=== PATIENT | female | born 1940 | race Caucasian/White ===

== ENCOUNTER 2019-08-17 06:12 | Inpatient (IN) ==
--- NOTE | 2019-08-12 08:40 | Anesthesiology Consultation ---
Date of Service August 12, 2019 Assessment & Plan (1) Encounter for pre-operative examination: Patient seen in PAT 04/08/19, and cleared for surgery, but case r/s due to covid19 pandemic. PCP Clearance 05/11/19 = "Seen in the office 05/11/19 and is medically cleared for surgery." COVID Status: As of 08/06 nurse assessment, patient denies travel to endemic area, known exposure/sick contacts, or symptoms of COVID19. Preoperative COVID19 testing to be completed on 08/[address] [facility]. Chart Review Chart Review: Acceptable Risk for Surgery and Patient NOT seen in Pre Admission Testing History Surgery Operation Date: 08/17/19 09:20 Proposed Procedures p Left Total Knee Arthroplasty - Cesar Churchill Height/Weight Height: 4 ft 11.75 in Weight: 60.328 kg Allergies Allergy/AdvReac Type Severity Reaction Status Date / Time No Known Allergies Allergy Verified 08/07/19 14:17 Medications Home Medications Medication Instructions Recorded Confirmed Last Taken amlodipine 10 mg PO QPM 03/30/19 08/07/19 Unknown aspirin 325 mg PO DAILY PRN 03/30/19 08/07/19 Unknown losartan 100 mg PO QAM 03/30/19 08/07/19 Unknown pravastatin 40 mg PO QPM 03/30/19 08/07/19 Unknown Past Medical History Medical History GERD (gastroesophageal reflux disease) HX Hyperlipidemia Hypertension Osteoarthritis Past Family History Family History Father Family history of diabetes mellitus Sister Family history of diabetes mellitus Past Surgical History Surgical History History of cataract surgery BOTH EYES History of esophagogastroduodenoscopy (EGD) Hx of colonoscopy Hx of total hysterectomy Nausea and vomiting after administration of anesthetic agent Social History Smoking Status: Never smoker Do You Dip or Chew Tobacco: No Hx Alcohol Use: Yes Alcohol type: wine alcohol intake frequency: holidays/special occasions only Hx Substance Use: No Testing Laboratory Results 08/11/19 WBC: 6.2 H/H: 10.1/34.5 PLATELETS: 325 SODIUM: 144 POTASSIUM: 4.6 CHLORIDE: 106 CO2: 25 BUN: 24 CREATININE: 1.2 GLUCOSE: 108 PT: 11.5 PTT: 26.5 INR: 0.97 UA: WNL Electrocardiogram Date: 04/08/19 Findings: + NSR @ (75bpm) Chest X-Ray Date: 04/08/19 1. Moderate hiatal hernia 2. No active disease in the chest
--- NOTE | 2019-08-16 21:09 | History & Physical Report ---
Date of Service August 16, 2019 Assessment & Plan (1) Degenerative joint disease of left knee: plan is to be admitted undergo left tka, stay the night, home next day. History of Present Illness Chief Complaint: left knee pain Primary Care Provider: Calos Sargent Pt with left knee pain for years. cant do adls. has failed all forms of cons ervative measures. Allergies Allergy/AdvReac Type Severity Reaction Status Date / Time No Known Allergies Allergy Verified 08/07/19 14:17 Home Medications Home Medications Medication Instructions Recorded Confirmed Type amlodipine 10 mg PO QPM 03/30/19 08/07/19 History aspirin 325 mg PO DAILY PRN 03/30/19 08/07/19 History losartan 100 mg PO QAM 03/30/19 08/07/19 History pravastatin 40 mg PO QPM 03/30/19 08/07/19 History Past Med/Surg History Medical History GERD (gastroesophageal reflux disease) HX Hyperlipidemia Hypertension Osteoarthritis Surgical History History of cataract surgery BOTH EYES History of esophagogastroduodenoscopy (EGD) Hx of colonoscopy Hx of total hysterectomy Nausea and vomiting after administration of anesthetic agent Family History Father Family history of diabetes mellitus Sister Family history of diabetes mellitus Social History Preferred Language: Welsh Communication Ability: Effective Gaming Investigator Required: No Beliefs That Will Affect Care: None Current Living Situation: Spouse Feels Safe at Home: Yes Smoking Status: Never smoker Second Hand Exposure: Yes (SPOUSE USED TO SMOKE) ; Hx Alcohol Use: Yes Alcohol type: wine Hx Substance Use: No Review of Systems All systems reviewed & are unremarkable except as noted in HPI & below Physical Exam Constitutional: WD/WN, vitals as above Neck: trachea midline, no thyromegaly Respiratory: normal respiratory effort, lungs clear to auscultation Cardiovascular: RRR, no murmur, no edema Gastrointestinal (Abdomen): normal bowel sounds, soft, nontender, no hepatosplenomegaly Musculoskeletal: Knee: + limited ROM of knee, + knee ROM with crepitation and + varus alignment
[~2019-08-17 06:12] MED LIST: ACETAMINOPHEN 500 MG TAB PO SCH; CEFAZOLIN 1000MG 1,000 MG/7.5 ML SYR IV SCH; CeleBREX 200 MG CAP PO SCH; FAMOTIDINE 20 MG TAB PO SCH; LR 500ML BOLUS, THEN 15ML/HR IV SCH; LR 60ML/HR IV SCH; METOCLOPRAMIDE HCL 10 MG TABLET PO SCH; ROPIVACAINE 0.5% HCL/PF 150 MG, BUPIVACAINE 0.5% MPF 30 ML, EPINEPHrine 30MG/30ML (OR U... INSTIL SCH; TRANEXAMIC ACID 1,000 MG **IV Intra-op IV SCH; TRANEXAMIC ACID 1,000 MG **IV Pre-op IV SCH; dexAMETHasone 4 MG TAB PO SCH
[2019-08-17] MEDS ORDERED: BUPIVACAINE 0.25% 30 ML VIAL ONE (07:27)
[2019-08-17] MEDS ORDERED: BUPIVACAINE 0.5 % 5 MG/1 ML PF 10ML VIAL ONE (07:28)
[2019-08-17] MEDS ORDERED: MIDAZOLAM HCL 1 MG/ML 2ML VIAL ONE (07:42)
[2019-08-17] MEDS ORDERED: fentaNYL citrate 100 MCG/2 ML VIAL ONE (07:42)
--- NOTE | 2019-08-17 08:27 | History & Physical Bridge Note ---
Date of Service August 17, 2019 History & Physical Bridge Note I have examined the patient, reviewed the History & Physical and in the interval since the performance of the History & Physical I have noted the following changes of clinical significance: no changes noted
[2019-08-17] MEDS ORDERED: BACITRACIN INJ 50,000 UNIT VIAL ONE (08:45)
[2019-08-17] MEDS ORDERED: ORTHO JOINT ANESTHETIC ONE (08:45)
[2019-08-17] MEDS ORDERED: PROPOFOL IV EMULSION 10 MG/ML 20 ML VIAL IV ONE (09:38)
[2019-08-17] MEDS ORDERED: LIDOCAINE HCL 2% 2 ML VIAL/AMP(20MG/ML) INFIL ONE (09:38)
--- NOTE | 2019-08-17 10:13 | Post Operative Brief Note ---
Immediate Post Op Note v1 Date of Surgery August 17, 2019 Pre & Post Diagnosis Operation Date: 08/17/19 08:30 Pre-Op Diagnosis: Left Knee Osteoarthritis Post-Op Diagnosis: Left Knee Osteoarthritis I identified the patient and participated in the time-out.: Yes Procedure Operation Date: 08/17/19 08:30 Actual Procedures p Left Total Knee Arthroplasty(Left) - Cesar Churchill Surgeon Cesar Churchill Director Of Payroll lucas goins pac Estimated Blood Loss 10 Findings Consistent with Post-Op Diagnosis Complications none
--- NOTE | 2019-08-17 10:14 | Operative Report ---
Post Operative Report Pre & Post Diagnosis Operation Date: 08/17/19 08:30 Pre-Op Diagnosis: Left Knee Osteoarthritis Post-Op Diagnosis: Left Knee Osteoarthritis I identified the patient and participated in the time-out.: Yes Procedure Operation Date: 08/17/19 08:30 Actual Procedures p Left Total Knee Arthroplasty(Left) - Cesar Churchill Surgeon Cesar Churchill Electric Shipyard Operator anshu goins pac Estimated Blood Loss 10 Findings Consistent with Post-Op Diagnosis Specimens none Complications none Disposition Accompanied Patient To Recovery: No Disposition: Recovery Room Description of Procedure IMPLANTS USED: [employer] journey 2 knee size 4 cemented femoral component, a size 3 tibial component, a size 11 PS insert and a size 32 all polyethylene patella INDICATIONS: Mrs. Fan is a pleasant (male/female) who has unfortunately failed all forms of conservative measures. Therefore, they have decided to undergo elective surgical intervention. All risks and benefits of the surgery were discussed with the patient and the family in entirety. PROCEDURE: The patient was brought to the operating room and properly identified by myself, anesthesia, and staff. Patient was given a spinal anesthesia and placed on the operating table in the supine position. Tourniquets were applied to the left upper thigh. The leg was then prepped and draped in usual sterile fashion. We made a standard midline approach over the patella and dissected down through the subcutaneous tissue to identify the capsule and performed a medial capsulotomy with the patella everted and the knee flexed.The patient matched implant was then put onto the femur. The femur measured to be a size #4. This was then put into place. We made the appropriate cuts and then placed a retractor behind the proximal tibia to retract anteriorly. We then placed the patient matched knee implant on the tibia. It measured to be a size #3. A size #3 guide was then put in place. We used the tibial punch then put the trial components into place. We had very good range of motion, excellent stability, and excellent patella tracking. We removed the trial components and irrigated the wound. We impacted the components in place using antibiotic cement. All excess cement was removed. We then irrigated the wound once more. We closed the capsule with 0 PDS suture, deep dermis and 2-0 Vicryl, and finally the skin with sarwat. A sterile dressing was applied. The patient was taken to the recovery room in stable condition. Due to the complex nature of the procedure, the entire surgery was performed with the operational assistance of Anshu Irvin PA-C. The anesthesiologist assistant certified was under direct supervision, was involved in the actual performance of all aspects of the surgical procedure including hemostasis, tissue retraction and incision, instrument management, patient positioning, and wound closure. I attest to the content of the Intraoperative Record and any orders documented therein. Any exceptions are noted below.
[2019-08-17] MEDS ORDERED: ATROPINE SULFATE 0.1 MG/ML 10ML SYR IV PRN (11:19)
[2019-08-17] MEDS ORDERED: ePHEDrine sulfate 50 MG/ML AMP IV PRN (11:19)
--- NOTE | 2019-08-17 11:20 | Anesthesiology Progress Note ---
Date of Service August 17, 2019 Anesthesia Post Procedure Vital Signs Vital Signs: Temp Pulse Pulse Resp BP BP Pulse Ox 08/17/19 11:10 77 18 110/56 L 100 08/17/19 11:00 76 18 110/53 L 100 08/17/19 10:49 36.8 C 79 18 93/53 L 100 08/17/19 07:57 74 18 103/45 L 97 08/17/19 07:17 36.6 C 97 H 20 148/71 H 98 Transfer of Care Handoff Completed per policy Notes Mental Status: alert / awake / arousable and participated in evaluation Patient Amnestic to Procedure: Yes Nausea / Vomiting: adequately controlled Pain: adequately controlled Airway Patency, RR, SpO2: stable & adequate BP & HR: stable & adequate Hydration State: stable & adequate Neuraxial Anesthesia: was administered and sensory block is resolving Anesthetic Complications: no major complications apparent and Pt Satisfied with anesthetic care
[2019-08-17] MEDS ORDERED: MAGNESIUM HYDROXIDE SUSP 30 ML UDC PO PRN (12:53)
[2019-08-17] MEDS ORDERED: OXYCODONE HCL IR 5 MG TAB (IMMEDIATE RELEASE) PO PRN (12:53)
[2019-08-17] MEDS ORDERED: bisacodyL 10 MG SUPP PR PRN (12:53)
[2019-08-17] MEDS ORDERED: METOCLOPRAMIDE HCL INJ 5 MG/ML 2 ML VIAL IV PRN (12:53)
[2019-08-17] MEDS ORDERED: ONDANSETRON INJ 2 MG/ML 2 ML VIAL IV PRN (12:53)
[2019-08-17] MEDS ORDERED: NALOXONE HCL 0.4 MG/1 ML VIAL/CARP IV PRN (12:53)
[2019-08-17] MEDS: ACETAMINOPHEN 500 MG TAB PO SCH ×2 (13:50→21:17)
[2019-08-17] MEDS: SODIUM CHLORIDE 0.9% 1000ML 1,000 ML IV SCH (16:54)
[2019-08-17] MEDS: CEFAZOLIN 2000MG 2,000 MG/15 ML SYR IV SCH (16:54)
[2019-08-17] MEDS ORDERED: PRAVASTATIN SOD 40 MG TAB PO SCH (21:00)
[2019-08-17] MEDS ORDERED: AMLODIPINE BESYLATE 5 MG TAB PO SCH (21:00)
[2019-08-17] MEDS ORDERED: SENNA 8.6 MG TAB PO SCH (21:00)
[2019-08-17] MEDS: DOCUSATE SODIUM 100 MG CAP PO SCH (21:17)
[2019-08-18] MEDS: CEFAZOLIN 2000MG 2,000 MG/15 ML SYR IV SCH (01:20)
[2019-08-18] MEDS: SODIUM CHLORIDE 0.9% 1000ML 1,000 ML IV SCH (04:29)
[2019-08-18] MEDS: ACETAMINOPHEN 500 MG TAB PO SCH ×2 (05:37→13:50)
[2019-08-18 06:39] LABS: Hematocrit (blood only) 29.7 % (37-47); Hemoglobin 9.1 g/dL (12.0-16.0); Mean Corpuscular Hemoglobin 23.4 pg (25-34); Mean Corpuscular Hgb Conc 30.6 g/dL (32-36); Mean Corpuscular Volume 76.3 fL (80-100); Mean Platelet Volume 9.4 fL (7.4-10.4); Platelet Count 285 K/uL (130-400); RDW Coefficient of Variation 14.7 % (11.5-14.5); RDW Standard Deviation 41.6 fL (36.4-46.3); Red Blood Count 3.89 M/uL (4.2-5.4); White Blood Count 12.21 K/uL (4.8-10.8)
[2019-08-18 07:11] LABS: BUN Creatinine Ratio 18.7 (10-20); Calcium 8.1 mg/dl (8.5-10.1); Creatinine Clr Calc Pharmacy 30.8 ml/min; Est GFR (African American) 50.3; Est GFR (Non-African American) 43.4; Potassium 3.9 mmol/L (3.5-5.1)
[2019-08-18] MEDS ORDERED: dexAMETHasone 10 MG in SYRINGE 0 ML IV SCH (08:00)
--- NOTE | 2019-08-18 08:21 | Anesthesiology Progress Note ---
Date of Service August 18, 2019 Anesthesia Post Procedure Vital Signs Vital Signs: Temp Pulse Pulse Pulse Resp BP Pulse Ox 08/18/19 07:21 36.5 C 80 16 114/69 98 08/18/19 04:12 36.8 C 81 16 112/68 96 08/17/19 23:05 36.6 C 80 16 107/64 96 08/17/19 21:13 87 125/69 08/17/19 19:41 36.7 C 85 16 119/67 94 08/17/19 15:16 36.4 C L 77 16 122/67 93 08/17/19 14:00 78 16 120/71 96 08/17/19 13:00 72 16 117/66 97 08/17/19 12:00 36.4 C L 76 16 113/65 97 08/17/19 11:47 75 12 115/58 L 99 08/17/19 11:40 74 12 106/56 L 95 08/17/19 11:30 75 12 116/57 L 97 08/17/19 11:20 36.4 C L 73 18 110/59 L 100 08/17/19 11:10 77 18 110/56 L 100 08/17/19 11:00 76 18 110/53 L 100 08/17/19 10:49 36.8 C 79 18 93/53 L 100 Notes Mental Status: alert / awake / arousable and participated in evaluation Patient Amnestic to Procedure: Yes Nausea / Vomiting: adequately controlled Pain: adequately controlled Airway Patency, RR, SpO2: stable & adequate BP & HR: stable & adequate Hydration State: stable & adequate Neuraxial Anesthesia: was administered and sensory block resolved Anesthetic Complications: no major complications apparent and Pt Satisfied with anesthetic care
--- NOTE | 2019-08-18 08:22 | Orthopedic Progress Note ---
Date of Service August 18, 2019 Assessment & Plan (1) Degenerative joint disease of left knee: Postop day 1 status post left total knee arthroplasty Acute blood loss anemia-vital signs are stable and she is asymptomatic at this time. PT/OT protocols. Weightbearing as tolerated. DVT prophylaxis with p.o. aspirin twice daily and SCDs. Continue current pain regimen as written. DC planning-patient is planning for home health services upon discharge. Admission and Anticipated Discharge Date Admission Date: August 17, 2019 Subjective Postop day 1 Patient is sitting in her chair at the bedside. Talking on the phone. No complaints this morning. Denies shortness of breath, chest pain, lightheadedness. She states currently that her pain is controlled. She states that she has no calf pain this morning but she had some shooting pain down her calf when she was ambulating to the bathroom last night. This has not returned. She is hoping to go home today. Physical Exam Physical Exam: Dressings are clean, dry, and intact. Calves are soft nontender. Neurovascular is intact. Toes are mobile. She has good dorsiflexion and plantar flexion on the operative side. Results & Data ([facility]) Vital Signs (Past 12 Hours) Vital Signs Temp Pulse Pulse Resp BP Pulse Ox 08/18/19 07:21 36.5 C 80 16 114/69 98 08/18/19 04:12 36.8 C 81 16 112/68 96 08/17/19 23:05 36.6 C 80 16 107/64 96 08/17/19 21:13 87 125/69 Laboratory Results Laboratory Results WBC 12.21 K/uL (4.8-10.8) H 08/18/19 05:54 RBC 3.89 M/uL (4.2-5.4) L 08/18/19 05:54 Hgb 9.1 g/dL (12.0-16.0) L 08/18/19 05:54 Hct 29.7 % (37-47) L 08/18/19 05:54 MCV 76.3 fL (80-100) L 08/18/19 05:54 MCH 23.4 pg (25-34) L 08/18/19 05:54 MCHC 30.6 g/dL (32-36) L 08/18/19 05:54 RDW Std Deviation 41.6 fL (36.4-46.3) 08/18/19 05:54 RDW Coeff of Jonatan 14.7 % (11.5-14.5) H 08/18/19 05:54 Plt Count 285 K/uL (130-400) 08/18/19 05:54 MPV 9.4 fL (7.4-10.4) 08/18/19 05:54 Sodium 140 mmol/L (136-145) 08/18/19 05:54 Potassium 3.9 mmol/L (3.5-5.1) 08/18/19 05:54 Chloride 112 mmol/L (98-107) H 08/18/19 05:54 Carbon Dioxide 19 mmol/L (21-32) L 08/18/19 05:54 Anion Gap 9.0 (3-11) 08/18/19 05:54 BUN 22 mg/dl (7-18) H 08/18/19 05:54 Creatinine 1.19 mg/dl (0.6-1.2) 08/18/19 05:54 Est Cr Clr Drug Dosing 30.8 ml/min 08/18/19 05:54 Est GFR ( Amer) 50.3 08/18/19 05:54 Est GFR (Non-Af Amer) 43.4 08/18/19 05:54 BUN/Creatinine Ratio 18.7 (10-20) 08/18/19 05:54 Glucose 148 mg/dl (70-99) H 08/18/19 05:54 Calcium 8.1 mg/dl (8.5-10.1) L 08/18/19 05:54 Blood Type A Positive 08/17/19 06:38 Antibody Screen NEGATIVE 08/17/19 06:38
[2019-08-18] MEDS: DOCUSATE SODIUM 100 MG CAP PO SCH (08:55)
[2019-08-18] MEDS ORDERED: MULTIVITAMIN TAB PO SCH (09:00)
[2019-08-18] MEDS ORDERED: LOSARTAN POTASSIUM 50 MG TAB PO SCH (09:00)
[2019-08-18] MEDS ORDERED: ASPIRIN 81 MG ECTAB PO SCH (09:00)
--- NOTE | 2019-08-19 17:04 | Discharge Summary (DS) ---
DISCHARGE DIAGNOSIS: Degenerative joint disease, left knee. SECONDARY DIAGNOSES: Gastroesophageal reflux disease, hyperlipidemia, hypertension, osteoarthritis. CONSULTS: None. COMPLICATIONS: None. PROCEDURES: Left total knee arthroplasty performed by Dr. Churchill on 08/18/2019. BRIEF HISTORY: As dictated in the history and physical. HOSPITAL SUMMARY: The patient was admitted on the above-noted date and had the above-noted surgery performed, which she tolerated well. On the first postoperative day, she was sitting in her chair at the bedside, talking on her phone. She had no complaints. Denied shortness of breath, chest pain or lightheadedness. Her pain was controlled. She had no calf pain that morning but stated she had some shooting pains down her calf when ambulating the previous evening. This had not returned. She was hoping to go home. Dressings were clean, dry and intact. Calves were soft, nontender, neurovascularly intact. Toes were mobile and she had good dorsiflexion and plantarflexion on the operative side. Vital signs were stable. She was afebrile. Hemoglobin was 9.1 and she was started on PT and OT protocols and continued on DVT prophylaxis and pain management. Her previous hemoglobin was approximately 3 grams higher preoperatively and she was otherwise remaining asymptomatic. Vital signs were stable. She progressed with her PT and OT protocols, was ambulating well and had gone up and down steps. Denied any symptoms such as chest pain or lightheadedness. No shortness of breath and it was felt that she could be discharged to home. For further review, please see chart. LABORATORY AND X-RAY DATA: As per chart. DISCHARGE INSTRUCTIONS: The patient was discharged home in satisfactory condition on 08/18/2019. DIET: Regular. ACTIVITY: Weightbearing as tolerated on the left lower extremity with walker. Follow TKA instruction sheets and special care instructions as noted per Dr. Churchill and follow up with Dr. Churchill in 2 weeks. The patient to have an H and H drawn in 2 days by home health services. DISCHARGE MEDICATIONS: Acetaminophen 1000 mg p.o. q.8 hours, aspirin 81 mg p.o. b.i.d., oxycodone 5 mg p.o. 1 tablet p.o. q.4 hours p.r.n. Resume home meds as listed. Stop taking previous aspirin dosage.
== END 2019-08-18 15:10 | disposition home health service (06) | DRG 470 ==
LOC: ASU 06:12 → 3E 12:46

== ENCOUNTER 2022-06-04 06:21 | Observation (INO) ==
--- NOTE | 2022-05-11 13:32 | PAT Medication Instructions ---
Medication Instructions Date of Service May 11, 2022 Home Medications amlodipine 10 mg tablet 10 mg PO QPM losartan 100 mg tablet 100 mg PO QAM apixaban 5 mg tablet (Eliquis) 5 mg PO BID ASK your prescriber and surgeon apixaban 5 mg tablet (Eliquis) 5 mg PO BID DO NOT take the morning of surgery losartan 100 mg tablet 100 mg PO QAM Take evening before surgery amlodipine 10 mg tablet 10 mg PO QPM OTHERWISE NOTHING TO EAT OR DRINK AFTER MIDNIGHT Other Notes If you have any questions please call us at [phone] or [phone] or [phone] or [phone]
--- NOTE | 2022-05-15 10:24 | Anesthesiology Consultation ---
Date of Service May 15, 2022 Assessment & Plan (1) Encounter for pre-operative examination: - COVID screening: Per assessment on 05/15: No known COVID-19 positive contacts or current COVID-19 related symptoms. Travel screen negative. Patient vaccinated. At surgeon discretion if preop Covid testing being done. - Outpatient joint pathway: Per OR booking comments, plan for outpatient joint program. Patient seen at [facility] 05/15. Patient motived. Her son/sisters will be strong home support. Case reviewed with Dr. Callahan. Patient is an acceptable candidate to proceed as outpatient joint pathway for TSA pending perioperative course. Surgeon's office arranging post-op home management. - Eliquis instructions: per surgeon/prescriber (per patient, she was given enoxaparin bridging instructions while Eliquis on hold) Chart Review Chart Review: Acceptable Risk for Surgery and Patient seen in Pre Admission Testing Teaching & Discussion Pre-Anesthesia Teaching/Discussion Notes: Instructed NPO after midnight before surgery,except medications with 15 cc of water. Medication instructions provided according to the [facility] guidelines. History Surgery Operation Date: 06/04/22 13:10 Proposed Procedures p Left Total Shoulder Arthroplasty Reverse - Stephen Dong MD Height/Weight Height: 5 ft Weight: 57 kg Allergies Allergy/AdvReac Type Severity Reaction Status Date / Time acetaminophen [From Vicodin] Allergy Gastrointestinal Verified 05/11/22 12:18 Upset hydrocodone [From Vicodin] Allergy Gastrointestinal Verified 05/11/22 12:18 Upset Medications Home Medications Medication Instructions Recorded Confirmed Last Taken amlodipine 10 mg tablet 10 mg PO QPM 03/30/19 05/11/22 08/16/19 17:00 losartan 100 mg tablet 100 mg PO QAM 03/30/19 05/11/22 08/16/19 06:00 apixaban 5 mg tablet (Eliquis) 5 mg PO BID 05/11/22 05/11/22 Unknown Past Medical History Medical History Deep vein thrombosis LLE (2019) post-op left TKA GERD (gastroesophageal reflux disease) Hx Hyperlipidemia Hx Hypertension Osteoarthritis Pulmonary embolism Approximately 11/2021, currently on Eliquis Exercise / Class Metabolic Activity II 4-5 Yardwork/Stairs/Walk up hill (one FS (No CP, no SOB)) Past Family History Family History Father Family history of diabetes mellitus Sister Family history of diabetes mellitus Past Surgical History Surgical History History of cataract surgery B/L History of esophagogastroduodenoscopy (EGD) History of total left knee replacement (TKR) Left TKA (08/17/19): SAB at L4-5 (x1 attempt) + PNB at [facility]. No issues noted per post-op anesthesia progress note. Hx of colonoscopy Hx of total hysterectomy Nausea and vomiting after administration of anesthetic agent Past Anesthesia History No Hx of Anesthesia Complications and No Family Hx of Anesthesia Complications History of PONV History of PONV (Noted per records, patient unsure) and Hx of Motion Sickness (Remote hx) Social History Smoking Status: Never smoker Do You Dip or Chew Tobacco: No Hx Alcohol Use: No Hx Substance Use: No substance use type: does not use Review of Systems Patient denies chest pain, shortness of breath, dyspnea on exertion, fever, chills, cough, wheezing, palpitations. Physical Exam Vital Signs VITALS BP 133/73 P 74 TEMP 97.9 SP02 98%RA RESP 16 PHYSICAL Full cervical extension range of motion. Full TMJ range of motion. TMD 2.5 finger breaths Mallampati Score 1 Dentition: + partials upper/lower Lungs: clear throughout to auscultation Cardiac: regular rate and rhythm, no murmurs noted Spine: normal Carotid arteries: negative bruit Extremities: no edema Lab Results Anesthesia Preop Results Results Anesthesia Widget: WBC 5.00 K/ul (4.8-10.8) 05/15/22 Hgb 12.2 g/dl (12.0-16.0) 05/15/22 Hct 37.9 % (37.0-47.0) 05/15/22 Plt 242 K/uL (130-400) 05/15/22 Na 137 mmol/L (136-145) 05/15/22 K 4.3 mmol/L (3.5-5.1) 05/15/22 Cl 106 mmol/L (98-107) 05/15/22 CO2 22 mmol/L (21-32) 05/15/22 BUN 29 mg/dl (6-23) H 05/15/22 Creat 1.01 mg/dl (0.6-1.2) 05/15/22 Glucose Level 91 mg/dl (70-99(Fasting)) 05/15/22 PT 10.9 Seconds (9.0-12.0) 05/15/22 PTT 32.5 Seconds (21.0-31.0) H 05/15/22 INR 1.0 (0.9-1.1) 05/15/22 HA1c 6.0 % (4.5-5.6) H 05/15/22 Blood Type A Positive 05/15/22 Antibody Screen NEGATIVE 05/15/22 Testing Electrocardiogram Date: 05/15/22 Findings: + NSR @ (72) Chest X-Ray Date: 05/15/22 FINDINGS: Cardiac mediastinal and hilar silhouettes are unchanged. Moderate sized hiatal hernia. No pneumothorax, pleural effusion, airspace consolidation or pulmonary edema. Chronic compression deformity of the thoracolumbar junction. Degenerative changes of the shoulders and spine. IMPRESSION: No acute process of the chest. Moderate sized hiatal hernia. COVID-19 Risk Screen Screening Information COVID-19 Screen Date: 05/15/22 Exposure 21 Days Family/Household +COVID Last 21 Days: No Exposure 10 Days Any COVID Exposure Last 10 Days: No Symptoms Last 10 Days Experienced COVID Sx Last 10 Days: No + COVID 0-90 Days COVID + in Last 0-90 Days: No
[~2022-06-04 06:21] MED LIST changes: -CEFAZOLIN 1000MG 1,000 MG/7.5 ML SYR IV SCH; +GABAPENTIN 300 MG CAP PO SCH; +LR 15ML/HR IV SCH; -LR 500ML BOLUS, THEN 15ML/HR IV SCH; -LR 60ML/HR IV SCH; -ROPIVACAINE 0.5% HCL/PF 150 MG, BUPIVACAINE 0.5% MPF 30 ML, EPINEPHrine 30MG/30ML (OR U... INSTIL SCH; +ROPIVACAINE 0.5% HCL/PF 150 MG, BUPIVACAINE 0.75% MPF 20 ML, EPINEPHrine 30MG/30ML (OR ... INSTIL SCH; +ceFAZolin 2000MG 2,000 MG/15 ML SYR IV SCH
[2022-06-04] MEDS ORDERED: BUPIVACAINE 0.5 % 5 MG/1 ML PF 10ML VIAL ONE (06:28)
[2022-06-04] MEDS ORDERED: ONDANSETRON INJ 2 MG/ML 2 ML VIAL IV PRN ×2 (08:26→11:26)
[2022-06-04] MEDS ORDERED: fentaNYL citrate PF 100 MCG/2 ML VIAL IV PRN (08:26)
[2022-06-04] MEDS ORDERED: ePHEDrine sulfate 50 MG/ML AMP IV PRN (08:26)
[2022-06-04] MEDS ORDERED: ATROPINE SULFATE 0.1 MG/ML 10ML SYR IV PRN (08:26)
[2022-06-04] MEDS ORDERED: MIDAZOLAM HCL 1 MG/ML 2ML VIAL ONE (08:32)
[2022-06-04] MEDS ORDERED: fentaNYL citrate PF 100 MCG/2 ML VIAL ONE (08:32)
--- NOTE | 2022-06-04 08:57 | History & Physical Report ---
Date of Service June 04, 2022 Assessment & Plan (1) Rotator cuff tear arthropathy of left shoulder: Plan: I have recommended proceeding with left reverse total shoulder replacement. I explained the risk benefits and alternatives to her and she has consented to pr oceed. We will resume her Eliquis postoperatively. Plan 23-hour observation. History of Present Illness Chief Complaint: Left shoulder pain Primary Care Provider: GLORY Hensley And is an 81-year-old woman with left shoulder rotator cuff tear arthropathy. After the failure of conservative treatment I recommended proceeding with a left reverse total shoulder replacement Allergies Allergy/AdvReac Type Severity Reaction Status Date / Time hydrocodone [From Vicodin] Allergy Gastrointestinal Verified 06/04/22 07:04 Upset Home Medications Medication Instructions Recorded Confirmed Type amlodipine 10 mg tablet 10 mg PO QPM 03/30/19 06/04/22 History losartan 100 mg tablet 100 mg PO QAM 03/30/19 06/04/22 History apixaban 5 mg tablet (Eliquis) 5 mg PO BID 05/11/22 06/04/22 History enoxaparin 60 mg/0.6 mL 60 mg subcut Q12H 06/04/22 06/04/22 History subcutaneous syringe (Lovenox) Past Med/Surg History Medical History Deep vein thrombosis LLE (2019) post-op left TKA GERD (gastroesophageal reflux disease) Hx Hyperlipidemia Hx Hypertension Osteoarthritis Pulmonary embolism Approximately 11/2021, currently on Eliquis Surgical History History of cataract surgery B/L History of esophagogastroduodenoscopy (EGD) History of total left knee replacement (TKR) Left TKA (08/17/19): SAB at L4-5 (x1 attempt) + PNB at [facility]. No issues noted per post-op anesthesia progress note. Hx of colonoscopy Hx of total hysterectomy Nausea and vomiting after administration of anesthetic agent Family History Father Family history of diabetes mellitus Sister Family history of diabetes mellitus Social History Smoking Status: Never smoker Second Hand Exposure: Yes (hx-over 20 years ago); Do You Dip or Chew Tobacco: No; Tobacco Cessation Education Requested by Patient: No Hx Alcohol Use: No Hx Substance Use: No Preferred Language: Welsh Communication Ability: Effective Warp Tying Machine Knotter Required: No Beliefs That Will Affect Care: None marital status: / Current Living Situation: Alone Current Living Situation Comment: son currently staying w/pt. Other Information That Helps Us Care for You: No Feels Safe at Home: Yes Safety Concerns: Feels Safe At This Time Assistive Devices: Denture - Upper and Denture - Lower Assistive Devices Comment: will not wear dentures DOS Physical Exam Constitutional: Well-developed, well-nourished, no acute distress Eyes: PERRL, conjunctivae normal, anicteric sclerae ENMT: external ear and nose normal, oropharynx normal Neck: Supple, no masses Respiratory: Clear to auscultation Cardiovascular: Regular rate and rhythm Gastrointestinal (Abdomen): Soft nontender Musculoskeletal: Left shoulder decreased range of motion, diffuse pain, crepitus with range of motion. Results & Data Results & Data Vital Signs (Past 12 Hours) Vital Signs Temp Pulse Resp BP Pulse Ox O2 Del Method 06/04/22 06:54 36.5 C 86 20 149/78 H 99 Room Air
[2022-06-04] MEDS ORDERED: ePHEDrine sulfate 50 MG/ML SYR ONE (11:09)
[2022-06-04] MEDS ORDERED: PHENYLEPHRINE 100MCG/ML 5ML SYR ONE (11:09)
[2022-06-04] MEDS ORDERED: ONDANSETRON INJ 2 MG/ML 2 ML VIAL ONE (11:09)
[2022-06-04] MEDS ORDERED: PROPOFOL IV EMULSION 10 MG/ML 20 ML VIAL IV ONE (11:09)
--- NOTE | 2022-06-04 11:22 | Post Operative Brief Note ---
Immediate Post Op Note v1 Date of Surgery June 04, 2022 Pre & Post Diagnosis Operation Date: 06/04/22 09:20 Pre-Op Diagnosis: Left Shoulder Osteoarthritis Post-Op Diagnosis: Left Shoulder Osteoarthritis I identified the patient and participated in the time-out.: Yes Procedure Operation Date: 06/04/22 09:20 Actual Procedures p Left Total Shoulder Arthroplasty Reverse(Left) - Stephen Dong MD Surgeon Stephen Dong MD Clinic Business Manager Liz Asif PA-C Estimated Blood Loss 20 Findings Consistent with Post-Op Diagnosis Severe degenerative changes left shoulder Complications No complications
--- NOTE | 2022-06-04 11:25 | Operative Report ---
Post Operative Report Pre & Post Diagnosis Operation Date: 06/04/22 09:20 Pre-Op Diagnosis: Left Shoulder Osteoarthritis Post-Op Diagnosis: Left Shoulder Osteoarthritis I identified the patient and participated in the time-out.: Yes Procedure Operation Date: 06/04/22 09:20 Actual Procedures p Left Total Shoulder Arthroplasty Reverse(Left) - Stephen Dong MD Surgeon Stephen Dong MD Engineer/Conductor Liz Asif PA-C Estimated Blood Loss 20 Findings Consistent with Post-Op Diagnosis Severe degenerative changes left shoulder. Specimens Proximal humerus bone and cartilage Drains No drains Anesthesia Type General Regional Indications Karie is a an 81-year-old woman with left shoulder rotator cuff tear arthropathy. After the failure of conservative treatment I recommended proceeding with a left reverse total shoulder replacement. I explained the risk benefits and alternatives to her and she consented to proceed. Description of Procedure Implants: Arthrex reverse total shoulder replacement. Standard size 7 stem. 33 neutral cup. 33 mm x +3 mm polyethylene. 24 x +4 mm baseplate. 25 central screw 2 peripheral locking screws. 33 x +4 glenosphere. Procedure: The patient was taken to the operating room. After verifying their identity and the surgical site they were placed in the beachchair position. All extremities were well-padded. The operative shoulder was sterilely prepped and draped in the usual fashion. A 4 inch incision was made anteriorly just lateral to the coracoid process and carried towards the axillary folds. The deltopectoral interval was identified and the cephalic vein and deltoid muscle were retracted laterally. A deep self-retaining retractor was placed. The capsule was exposed. The subscapularis was elevated off of the proximal humerus and tagged for later repair. The humeral head was exposed and recut at the anatomic neck. The humerus was reamed sequentially until appropriate cortical contact was identified. The trial component was placed in 30 degrees of retroversion. Retractors were placed to expose the glenoid. The remaining labral tissue including the biceps anchor was removed. The central pin was placed and the glenoid was reamed. The baseplate was impacted into place with 1 central and 2 peripheral locking screws. The glenosphere was impacted into place into the correct orientation and securely tested with a large clamp. Polyethylene components were trialed until an appropriately sized trial was identified that had full range of motion, good stability, good deltoid tension, and no signs of impingement. The trial humerus components were removed and the final components assembled and impacted into place. 30 degrees of retroversion was utilized. After reduction once again there was good range of motion, good stability, appropriate deltoid tension, and no signs of impingement. The joint was thoroughly irrigated. The subscapularis was repaired to the proximal humerus. The rotator interval was closed distally if there was any supraspinatus tendon left. The remaining incision was closed with 0 Vicryl 2-0 Vicryl and sarwat. A sterile Silverlon dressing was applied. The patient was placed in a shoulder immobilizer. The patient tolerated the procedure well and there were no intraoperative complications. Liz Asif PA-C assisted in all aspects of the procedure including patient positioning, prepping and draping, manipulation of surgical instruments and retractors, wound closure, dressing placement, and compression wrap placement. I attest to the content of the Intraoperative Record and any orders documented therein. Any exceptions are noted below.
[2022-06-04] MEDS ORDERED: bisacodyL 10 MG SUPP PR PRN (11:26)
[2022-06-04] MEDS ORDERED: oxyCODONE HCL IR 5 MG TAB (IMMEDIATE RELEASE) PO PRN (11:26)
[2022-06-04] MEDS ORDERED: NALOXONE HCL 0.4 MG/1 ML VIAL/CARP IV PRN (11:26)
[2022-06-04] MEDS ORDERED: MAGNESIUM HYDROXIDE SUSP 30 ML UDC PO PRN (11:26)
--- NOTE | 2022-06-04 12:14 | Anesthesiology Progress Note ---
Date of Service June 04, 2022 Anesthesia Post Procedure Vital Signs Vital Signs: Temp Pulse Resp BP Pulse Ox O2 Del Method O2 Flow Rate 06/04/22 12:00 81 16 124/65 99 Oxymask 5 06/04/22 11:50 82 16 125/68 99 Oxymask 5 06/04/22 11:42 96.8 F L 83 16 132/68 99 Oxymask 5 06/04/22 06:54 97.7 F 86 20 149/78 H 99 Room Air Transfer of Care Handoff Completed per policy Notes Mental Status: alert / awake / arousable and participated in evaluation Patient Amnestic to Procedure: Yes Nausea / Vomiting: adequately controlled Pain: adequately controlled Airway Patency, RR, SpO2: stable & adequate BP & HR: stable & adequate Hydration State: stable & adequate Anesthetic Complications: no major complications apparent and Pt Satisfied with anesthetic care
[2022-06-04] MEDS: SODIUM CHLORIDE 0.9% 1000ML 1,000 ML IV SCH ×2 (14:56→20:04)
--- NOTE | 2022-06-04 15:25 | Hospitalist Consultation ---
Date of Consultation June 04, 2022 Assessment & Plan (1) Rotator cuff tear arthropathy of left shoulder: Left shoulder arthroplasty S/p left reverse total shoulder Doing well postop with no acute concerns, neurovascularly intact Pain adequately controlled at time of bedside visit Continue apixaban 5 mg p.o. twice daily History of PE and DVT History of PE with large clot burden in RLL 11/2021, also had a prior DVT 2019 after knee replacement Is high VTE risk. Recommend resuming apixaban 5 mg p.o. twice daily 12-24 hours postop. Will resume 06/05/22 AM. No shortness of breath, leg swelling, or leg pain at time of provider assessment. Recommend indefinite treatment with Eliquis Patient is with a weight of 56 and age of 81, meets 2/3 criteria for dose reduction of Eliquis. As she is postop and had a PE 11/2021 would complete the full 6 months of treatment at 5 mg twice daily through May and then dose reduce Eliquis to 2.5 mg twice daily as outpatient GERD Patient reports a history of GERD symptoms, was previously prescribed PPI but did not take this at the time As an outpatient last month was worked up for possible GI bleeding, had an additional erroneous iron study which showed iron deficiency. This was thought to be a lab error and follow-up repeat showed normal iron levels, normal hemoglobin for age, and low normal MCV. While not anemic or with melena, as she has had some intermittent GERD symptoms, is anticoagulated, and at increased risk postop so reasonable to treat with a PPI for stress prophylaxis for 4 weeks, then can use H2 as needed. Patient was scheduled for screening colonoscopies as an outpatient, had prev iously had these around every 10 years which were normal. Per patient she did not complete her last 1 due to inability to tolerate laying on her side and has decided to defer further colonoscopies due to risk/benefit and age discussion with her PCP. Hypertension Continue losartan 100 mg daily tomorrow Continue amlodipine 10 mg p.o. every afternoon Prediabetes mellitus Not on antiglycemic's at home. Last A1C 6%. Fasting BSG 151. Added conservative weight based SSI. Do not anticipate home antiglycemic's, can follow-up with outpatient for additional follow-up and A1c repeat BSG AC/at bedtime, goal BSG [id number] DVT prophylaxis: On Eliquis CODE STATUS: Full code Disposition: Medical/surgical (2) GERD (gastroesophageal reflux disease): (3) Hyperlipidemia: (4) Deep vein thrombosis: (5) Pulmonary embolism: History of Present Illness Attending Physician: Stephen Dong MD History of Present Illness Karie Fan is a n 81yo F with a PMHx of GERD, microcytic anemia, past DVT with PE, bilateral adhesive capsulitis, and HLD who presented for scheduled left reverse total shoulder replacement 2/2 rotator cuff arthropathy failing conservative treatment. We are consulted for medical management of comorbidities. Preoperative clearance reviewed. She has a history of multiple bilateral pulmonary emboli with large clot burden of the right lower lobe 11/2021 and is on Eliquis 5 mg p.o. twice daily indefinitely as an outpatient. She also had a left lower extremity DVT postoperatively in 2019 after knee replacement. Due to her multiple VTE she was recommended for a Lovenox bridge for 5 days up until surgery, and aggressive reinitiation of anticoagulation postoperatively. Preop labs reviewed. Hemoglobin 13.1, normocytic. Patient had been r referred for suspected iron deficiency, had an erroneous lab draw with subsequent studies within normal limits. On reevaluation patient was not found to be neither anemic, microcytic, or iron deficient. 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 Inpatient evaluation of this is not recommended, and no acute care management of this is required at this time Preoperative medications: Amlodipine 10 mg, Eliquis twice daily which was stopped with a 5-day Lovenox 60 mg twice daily bridge to surgery, losartan 100 mg daily, and Protonix 40 mg daily Intolerant of atorvastatin and Vicodin. Social history: No tobacco use, no alcohol use, no recreational drug use Noncontributory family history No history of DM Preoperative creatinine 1.01, no history of CKD/renal disease Last A1c 6.0, pre-DM without antiglycemic's Preoperative EKG: Normal sinus rhythm. QTc 435. No ST segment changes or T wave inversions appreciated. And is seen at the bedside postop. She reports she feels very well and has no pain whatsoever. She also has no chest pain, chest pressure, shortness of breath, difficulty breathing, nausea, or stomach upset. She reports that she did have some numbness and tingling in all 5 of her left fingers, this is gradually improving with time. She reports she has a past history of DVT and PE, she had a significant burden of clot with her PE and has been on Eliquis since. She reports she does not think that she has problems with bleeding, but was told as an outpatient that she was anemic with low iron and then had repeat studies which showed that her hemoglobin was within the normal range and her MCV was low normal and did not have iron deficiency on repeat studies. Initial iron studies were thought to be due to lab error. She denies any history of black bowel movements, although notes they had been dark while she was on iron for suspected iron deficiency. She denies any history of epigastric pain, although notes there was prior concern for a possible stomach ulcer due to NSAID use and had been on Protonix in the past. She reports that she had not taken this as directed as it was unclear to her if she actually needed it or not. Rare GERD symptoms in the past, none recently. No tobacco use. Does not take any antiglycemic's. Prefers to be on minimal medications were possible. Is looking for an alternative to Silver sneakers to stay active as an outpatient, has recently found a gym which she thinks will work. Patient reports she had had trouble finding an alternative previously, but is confident she has found a suitable alternative and declines case management assistance in facilitating no other questions or concerns at time of provider visit Medical History: Reviewed Medications: Reviewed Surgical History: Reviewed Family history: Reviewed Allergies: Reviewed Social History: Reviewed Code Status: Full Code Allergies Allergy/AdvReac Type Severity Reaction Status Date / Time hydrocodone [From Vicodin] Allergy Gastrointestinal Verified 06/04/22 07:04 Upset Home Medications Medication Instructions Recorded Confirmed Type amlodipine 10 mg tablet 10 mg PO QPM 03/30/19 06/04/22 History losartan 100 mg tablet 100 mg PO QAM 03/30/19 06/04/22 History apixaban 5 mg tablet (Eliquis) 5 mg PO BID 05/11/22 06/04/22 History enoxaparin 60 mg/0.6 mL 60 mg subcut Q12H 06/04/22 06/04/22 History subcutaneous syringe (Lovenox) Patient History Medical History (Updated 06/04/22 @ 16:52 by Cristóbal Yun MD) Deep vein thrombosis LLE (2019) post-op left TKA GERD (gastroesophageal reflux disease) Hx Hyperlipidemia Hx Hypertension Osteoarthritis Pulmonary embolism Approximately 11/2021, currently on Eliquis Surgical History History of cataract surgery B/L History of esophagogastroduodenoscopy (EGD) History of total left knee replacement (TKR) Left TKA (08/17/19): SAB at L4-5 (x1 attempt) + PNB at [facility]. No issues noted per post-op anesthesia progress note. Hx of colonoscopy Hx of total hysterectomy Nausea and vomiting after administration of anesthetic agent Family History Father Family history of diabetes mellitus Sister Family history of diabetes mellitus Social History Smoking Status: Never smoker Second Hand Exposure: Yes (hx-over 20 years ago); Do You Dip or Chew Tobacco: No; Tobacco Cessation Education Requested by Patient: No Hx Alcohol Use: No Hx Substance Use: No Preferred Language: Wolof Communication Ability: Effective Staff Pharmacist Required: No Beliefs That Will Affect Care: None marital status: / Current Living Situation: Alone Current Living Situation Comment: son currently staying w/pt. Other Information That Helps Us Care for You: No Feels Safe at Home: Yes Safety Concerns: Feels Safe At This Time Assistive Devices: None Assistive Devices Comment: will not wear dentures DOS Review of Systems Review of Systems: All systems reviewed & are unremarkable except as noted in HPI & below Physical Exam Physical Exam: General: A&Ox3. NAD. Cooperative. HEENT: Atraumatic, normocephalic. Vision/hearing grossly intact, pupils equal and reactive to light Pulm: CTAB A&P. -wheezes, -rales, -rhonchi. Symmetrical chest rise. No increased work of breathing. No respiratory distress. Cardiac: RRR, -mrg. Radial pulses intact and symmetrical. Abdominal: Nontender, nondistended, soft. BS present. Extremities: Left arm in sling, surgical dressing intact C/D/I. No swelling/hematoma present. Radial pulse intact bilaterally. 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 Sensation intact to soft touch in all 5 fingers bilaterally, slightly qualitatively diminished in left hand but improving with time per patient Results & Data Results & Data Vital Signs (Past 12 Hours) Vital Signs Temp Pulse Resp BP Pulse Ox O2 Del Method O2 Flow Rate 06/04/22 14:43 36.2 C L 76 20 113/66 95 Room Air 06/04/22 12:45 Room Air 06/04/22 13:26 36.2 C L 75 20 106/62 96 Room Air 06/04/22 13:01 36.2 C L 76 18 110/65 95 Room Air 06/04/22 12:57 36.2 C L 74 20 112/66 94 Room Air 06/04/22 12:30 36.2 C L 77 18 118/65 95 Room Air 06/04/22 12:20 36.2 C L 76 16 109/69 95 Room Air 06/04/22 12:10 36.2 C L 78 16 122/61 95 Room Air 06/04/22 12:00 81 16 124/65 99 Oxymask 5 06/04/22 11:50 82 16 125/68 99 Oxymask 5 06/04/22 11:42 36.0 C L 83 16 132/68 99 Oxymask 5 06/04/22 06:54 36.5 C 86 20 149/78 H 99 Room Air PG Care Time/CCT Total # of Minutes Spent Total Time Spent with Patient: Total time spent is greater than 50% in coordination of care (as documented) at patient's floor/unit and/or counseling patient: Coding Level of Care Code 73796 IN/OBS CONSULT LVL 4,60M Diagnoses Rotator cuff tear arthropathy of left shoulder M75.102; M12.812 GERD (gastroesophageal reflux disease) K21.9 Hyperlipidemia E78.5 Deep vein thrombosis I82.409 Pulmonary embolism I26.99
[2022-06-04] MEDS: ACETAMINOPHEN 500 MG TAB PO SCH ×2 (16:13→22:01)
[2022-06-04] MEDS: ceFAZolin 2000MG 2,000 MG/15 ML SYR IV SCH (16:13)
[2022-06-04] MEDS ORDERED: GLUCAGON FOR INJ 1 MG VIAL SQ PRN (17:21)
[2022-06-04] MEDS ORDERED: CARBOHYDRATES FOR HYPOGLYCEMIA PO PRN (17:21)
[2022-06-04] MEDS ORDERED: DEXTROSE 50% 50 ML SYRINGE IV PRN (17:21)
[2022-06-04] MEDS ORDERED: GLUCOSE 40% GEL 15 GM TUBE PO PRN (17:21)
[2022-06-04] MEDS ORDERED: GLUCOSE 10 TAB/TUBE PO PRN (17:21)
[2022-06-04] MEDS: PANTOprazole 40 MG TAB PO SCH (17:55)
[2022-06-04] MEDS: DOCUSATE SODIUM 100 MG CAP PO SCH (20:03)
[2022-06-04] MEDS ORDERED: CeleBREX 200 MG CAP PO SCH (21:00)
[2022-06-04] MEDS ORDERED: SENNA 8.6 MG TAB PO SCH (21:00)
[2022-06-04] MEDS ORDERED: amLODIPine BESYLATE 5 MG TAB PO SCH (21:00)
[2022-06-04] MEDS ORDERED: INSULIN ASPART PER UNIT CHARGE SC SCH (21:00)
[2022-06-05] MEDS: ceFAZolin 2000MG 2,000 MG/15 ML SYR IV SCH (01:57)
[2022-06-05] MEDS: ACETAMINOPHEN 500 MG TAB PO SCH (05:56)
[2022-06-05 06:41] LABS: Hematocrit (blood only) 28.4 % (37.0-47.0); Immature Granulocytes # (auto) 0.02 K/uL (0.01-0.20); Immature Granulocytes % (auto) 0.3 %; Lymphocytes # (auto) 0.63 K/uL (1.2-3.4); Mean Corpuscular Hemoglobin 24.7 pg (25.0-34.0); Mean Corpuscular Hgb Conc 31.7 g/dL (32.0-36.0); Mean Platelet Volume 10.5 fL (9.4-12.4); Monocytes # (auto) 0.61 K/uL (0.11-0.59); Monocytes % (auto) 8.7 %; Neutrophils # (auto) 5.77 K/uL (1.40-6.50); Platelet Count 173 K/uL (130-400); RDW Coefficient of Variation 15.4 % (11.5-14.5); RDW Standard Deviation 43.4 fL (36.4-46.3); Red Blood Count 3.64 M/uL (4.20-5.40); White Blood Count 7.03 K/ul (4.8-10.8)
[2022-06-05 07:12] LABS: BUN Creatinine Ratio 19.3 (10-20); Calcium 7.8 mg/dl (8.6-10.3); Est GFR (African American) 70.9 ml/min; Est GFR (Non-African American) 61.2 ml/min; Potassium 4.1 mmol/L (3.5-5.1)
--- NOTE | 2022-06-05 08:05 | Orthopedic Progress Note ---
Date of Service June 05, 2022 Assessment & Plan (1) Rotator cuff tear arthropathy of left shoulder: Plan: Postop day 1 status post left total shoulder arthroplasty. PT/OT protocols. Nonweightbearing left upper extremity. DVT prophylaxis-apixaban 5 mg p.o. twice daily, SCDs. Pain management as written. DC planning-plan for discharge to home today Admission and Anticipated Discharge Date Admission Date: June 04, 2022 Subjective Postop day 1 Patient sitting up in bed awake and alert. No complaints this morning. Pain is controlled. States she has some mild residual numbness in her thumb on the operative side but otherwise feels well. She is hoping to go home today. Physical Exam Physical Exam: Liana is clean, dry, and intact. Sling is in place. She has good range of motion of her fingers and wrist. Residual numbness in the left thumb. Capillary fill is less than 2 seconds Results & Data Vital Signs (Past 12 Hours) Vital Signs Temp Pulse Resp BP Pulse Ox O2 Del Method 06/05/22 07:45 36.8 C 73 16 105/63 96 Room Air 06/05/22 03:50 36.8 C 79 18 115/69 94 Room Air 06/04/22 23:07 36.7 C 83 18 105/68 95 Room Air Laboratory Results Laboratory Results WBC 7.03 K/ul (4.8-10.8) 06/05/22 06:12 RBC 3.64 M/uL (4.20-5.40) L 06/05/22 06:12 Hgb 9.0 g/dl (12.0-16.0) L 06/05/22 06:12 Hct 28.4 % (37.0-47.0) L 06/05/22 06:12 MCV 78.0 fL (80.0-100.0) L 06/05/22 06:12 MCH 24.7 pg (25.0-34.0) L 06/05/22 06:12 MCHC 31.7 g/dL (32.0-36.0) L 06/05/22 06:12 RDW Std Deviation 43.4 fL (36.4-46.3) 06/05/22 06:12 RDW Coeff of Jonatan 15.4 % (11.5-14.5) H 06/05/22 06:12 Plt Count 173 K/uL (130-400) 06/05/22 06:12 MPV 10.5 fL (9.4-12.4) 06/05/22 06:12 Immature Gran % (Auto) 0.3 % 06/05/22 06:12 Neut % (Auto) 82.0 % 06/05/22 06:12 Lymph % (Auto) 9.0 % 06/05/22 06:12 [place] % (Auto) 8.7 % 06/05/22 06:12 Eos % (Auto) 0.0 % 06/05/22 06:12 Baso % (Auto) 0.0 % 06/05/22 06:12 Neut # (Auto) 5.77 K/uL (1.40-6.50) 06/05/22 06:12 Lymph # (Auto) 0.63 K/uL (1.2-3.4) L 06/05/22 06:12 [place] # (Auto) 0.61 K/uL (0.11-0.59) H 06/05/22 06:12 Eos # (Auto) 0.00 K/uL (0-0.50) 06/05/22 06:12 Baso # (Auto) 0.00 K/uL (0-0.2) 06/05/22 06:12 Immature Gran # (Auto) 0.02 K/uL (0.01-0.20) 06/05/22 06:12 Sodium 141 mmol/L (136-145) 06/05/22 06:12 Potassium 4.1 mmol/L (3.5-5.1) 06/05/22 06:12 Chloride 110 mmol/L (98-107) H 06/05/22 06:12 Carbon Dioxide 23 mmol/L (21-32) 06/05/22 06:12 Anion Gap 8 (3-11) 06/05/22 06:12 BUN 17 mg/dl (6-23) 06/05/22 06:12 Creatinine 0.88 mg/dl (0.6-1.2) 06/05/22 06:12 Est Cr Clr Drug Dosing 39.0 ml/min 06/05/22 06:12 Est GFR ( Amer) 70.9 ml/min 06/05/22 06:12 Est GFR (Non-Af Amer) 61.2 ml/min 06/05/22 06:12 BUN/Creatinine Ratio 19.3 (10-20) 06/05/22 06:12 Glucose 116 mg/dl (70-99(Fasting)) H 06/05/22 06:12 POC Glucose 199 mg/dl (70-99) H 06/04/22 20:36 Calcium 7.8 mg/dl (8.6-10.3) L 06/05/22 06:12 SARS-CoV-2, RNA, NAAT NEGATIVE (NEGATIVE) 06/04/22 Unknown
[2022-06-05] MEDS: PANTOprazole 40 MG TAB PO SCH (08:09)
[2022-06-05] MEDS: DOCUSATE SODIUM 100 MG CAP PO SCH (08:09)
[2022-06-05] MEDS ORDERED: MULTIVITAMIN TAB PO SCH (09:00)
[2022-06-05] MEDS ORDERED: LOSARTAN POTASSIUM 50 MG TAB PO SCH (09:00)
[2022-06-05] MEDS ORDERED: APIXABAN 5 MG TABLET PO SCH ×2 (09:00→21:00)
[2022-06-05] MEDS ORDERED: amLODIPine BESYLATE 5 MG TAB PO SCH (21:00)
--- NOTE | 2022-06-08 11:10 | Discharge Summary ---
Date of Service June 08, 2022 Admission HPI Per Admitting Provider And is an 81-year-old woman with left shoulder rotator cuff tear arthropathy. After the failure of conservative treatment I recommended proceeding with a left reverse total shoulder replacement Principal Diagnosis Left Shoulder Arthropathy Discharge Exam Liana is clean, dry, and intact. Sling is in place. She has good range of motion of her fingers and wrist. Residual numbness in the left thumb. Capillary fill is less than 2 seconds Eyes PERRL, conjunctivae normal, anicteric sclerae ENMT external ear and nose normal, oropharynx normal Discharge Data Allergies Allergy/AdvReac Type Severity Reaction Status Date / Time hydrocodone [From Vicodin] Allergy Gastrointestinal Verified 06/04/22 07:04 Upset Consultations 06/04/22 11:26 Consult Hospitalist Routine Procedures Performed Operation Date: 06/04/22 09:20 Actual Procedures p Left Total Shoulder Arthroplasty Reverse(Left) - Stephen Dong MD Ordered Studies 06/04/22 05:00 US - OR guided needle placemen Routine Hospital Course (1) Rotator cuff tear arthropathy of left shoulder: Postop day 1 status post left total shoulder arthroplasty. PT/OT protocols. Nonweightbearing left upper extremity. DVT prophylaxis-apixaban 5 mg p.o. twice daily, SCDs. Pain management as written. DC planning-plan for discharge to home today Total Time Total Time Spent Total Time Spent (In Minutes): 30 minutes Discharge Plan Discharge Items Patient Disposition: Home - Home Health Services Reason For Visit: Left Shoulder Osteoarthritis Discharge Diagnosis: Left shoulder osteoarthritis Activity: Per Instructions section Weightbearing: Left non-weightbearing Non-emergency contact: Surgeon Call non-emergency contact if: you have any medication questions, your pain is not controlled, your temperature is above 101.5, your wound has increased redness and your wound has increased drainage Follow-up/Referrals: Stephen Dong MD [Surgeon] - (Follow-up with Dr. Dong in 2 weeks from the day of surgery for your first postoperative visit.) Alf Mendez CRNP [Primary Care Provider] - Diet: Carb Consistent or DM2 Addtl Attending Provider Instructions: Take regular Eliquis dose of 5mg bid for DVT prophylaxis- patient has a history of PE. No Celebrex is to be prescribed as patient is on Eliquis. Your medications have been sent to your pharmacy by Dr. Dong's office. Please call the office with any questions about your medications. Post-op pain medication sent in to patient's pharmacy on file. Post-op dressing to remain in place for 7 days. Dressing can be removed 7 days following surgery by home nursing. Patient may shower 7 days following surgery. Do not submerge the shoulder. Wear the shoulder sling at all times except for bathing, dressing, and doing home exercises. Do home exercises. Pending Studies at Discharge: No Stand-Alone Forms: My [facility] [employer], Smoking Cessation Medications and DC Order Prescriptions: Continued amlodipine 10 mg Tablet 10 mg PO QPM losartan 100 mg Tablet 100 mg PO QAM Eliquis 5 mg Tablet 5 mg PO BID Discontinued enoxaparin [Lovenox] 60 mg/0.6 mL Syringe 60 mg SUBCUT Q12H Rx Instructions: Pt is completed with medication as she took it prior to surgery Krames/Other Patient Handouts: Apixaban Oral Tablet, Understanding Deep Vein Thrombosis, Total Shoulder Replacement Surgery, Preventing Deep Vein Thrombosis, Shoulder Replace Home Recovery, Preventing Falls in the Home Admission Data Admit Date/Time: 06/04/22 11:26 Attending Provider: Stephen Dong Admit Provider: Stephen Dong Primary Care Provider: Alf Mendez Other Providers: Cornell Casper ; [facility] ; Mery Brooks Other Interventions: Discharge Summary Assessment (RN) Last Done: 06/05/22 10:56
== END 2022-06-05 11:46 | disposition home health service (06) ==
LOC: ASU 06:21 → 3E 06:21